=== PATIENT | female | born 1940 | race Caucasian/White ===

== ENCOUNTER → 2017-03-25 | Outpatient (CLI) | payer MEDICARE, BC ==
--- NOTE | 2017-03-25 15:07 | CARD ---
APPROVED REPORT EXAM: Two-dimensional and M-mode echocardiogram with Doppler and color Doppler. Other Information Quality : GoodHR: 59bpm INDICATION Dyspnea 2D DIMENSIONS RVDd3.2 (2.9-3.5cm)Left Atrium(2D)3.6 (1.6-4.0cm) IVSd0.9 (0.7-1.1cm)Aortic Root(2D)3.0 (2.0-3.7cm) LVDd4.8 (3.9-5.9cm)LVOT Diameter1.8 (1.8-2.4cm) PWd0.9 (0.7-1.1cm)LVDs3.5 (2.5-4.0cm) FS (%) 28.8 %SV60.7 ml LVEF(%)55.3 (>50%) Aortic Valve AoV Peak Lionel.117.6cm/sAoV VTI28.9cm AO Peak GR.5.5mmHgLVOT Peak Lionel.96.4cm/s AO Mean GR.3mmHgAVA (VMAX)2.12cm2 AI P 1/2 [id number] Mitral Valve MV E Pyzkylmj96.7cm/sMV E Peak Gr.110mmHg MV DECEL [id number] A Lgnaumeq65.5cm/s E/A Ratio0.9 Pulmonary Valve PV Peak Xmunzxao38.3cm/sPV Peak Grad.4mmHg Tricuspid Valve TR P. Knigrotb008ip/sTR Peak Gr.23mmHg Pulmonary Vein S1 Ogzlydvb06.3cm/sD2 Gfvwmvfx83.4cm/s LEFT VENTRICLE The left ventricle is normal size. There is normal left ventricular wall thickness. The left ventricu lar systolic function is normal and the ejection fraction is within normal range. EF 50-55% There is normal LV segmental wall motion. The left ventricular diastolic function and filling is normal for ag e. RIGHT VENTRICLE The right ventricle is normal size. The right ventricular systolic function is normal. ATRIA The left atrium size is normal. The right atrium size is normal. The interatrial septum is intact wit h no evidence for an atrial septal defect or patent foramen ovale as noted on 2-D or Doppler imaging. AORTIC VALVE The aortic valve is mildly thickened but opens well. Doppler and Color Flow revealed mild aortic regu rgitation. There is no significant aortic valvular stenosis. There is no aortic valvular vegetation. MITRAL VALVE The mitral valve is normal in structure and function. There is no evidence of mitral valve prolapse. There is no mitral valve stenosis. Doppler and Color-flow revealed mild mitral regurgitation. TRICUSPID VALVE The tricuspid valve is normal in structure and function. Doppler and Color Flow revealed mild tricusp id regurgitation. There is no tricuspid valve prolapse or vegetation. There is no tricuspid valve julia nosis. PULMONIC VALVE Doppler and Color Flow revealed mild pulmonic valvular regurgitation. There is no pulmonic valvular s tenosis. GREAT VESSELS The aortic root is normal in size. The IVC is normal in size and collapses >50% with inspiration. PERICARDIAL EFFUSION There is no pleural effusion. There is no evidence of significant pericardial effusion. Critical Notification Critical Value: No <Conclusion> The left ventricular systolic function is normal and the ejection fraction is within normal range. EF 50-55% There is normal LV segmental wall motion. No significant valvular disease, pulmonary hypertension or diastolic dysfunction to account for dyspn ea.
== END | disposition home or self-care (01) ==
LOC: ECHO 10:46
PROVIDERS: ATTEND Specialist
DX: I35.1 Nonrheumatic aortic (valve) insufficiency (principal); I34.0 Nonrheumatic mitral (valve) insufficiency; I07.1 Rheumatic tricuspid insufficiency; I37.1 Nonrheumatic pulmonary valve insufficiency
CPT/HCPCS: 93306

== ENCOUNTER 2019-04-19 14:57 | Observation (INO) | payer MEDICARE, BC ==
[~2019-04-19] VITALS: Ht 165.1 cm; Wt 60.9 kg
--- NOTE | 2019-04-19 15:15 | EKG ---
[address] [address] Test Date: 2019-04-19 Test Time: 15:07:45 Pat Name: NAIMA HUFFMAN Department: Room: Gender: F [employer] Operator: : [id number] Requested By: DELORIS MUELLER Order Number: [id number] Reading MD: Measurements Intervals Advance Rate: 109 P: 68 IN: 160 QRS: -54 QRSD: 102 T: 63 QT: 354 QTc: 478 Interpretive Statements SINUS TACHYCARDIA ABNORMAL LEFT AXIS DEVIATION LEFT ANTERIOR FASCICULAR BLOCK QRS(T) CONTOUR ABNORMALITY CONSISTENT WITH ANTEROSEPTAL INFARCT AGE UNDETERMINED ABNORMAL ECG RI6.01 No previous ECG available for comparison
--- NOTE | 2019-04-19 15:20 | PHYS DOC ---
Adult General Chief Complaint Chief Complaint: HEAD INJURY/TRAUMA HPI HPI 78-year-old female presents via EMS after fall. The patient had hip surgery 6 weeks ago and is supposed to be using a cane or walker. She was walking in the [employer] parking lot with her cane instead of the walker and she lost her balance and fell. She struck the left side of her forehead on the ground. She was not knocked unconscious. She remembers the entire event. She is alert and oriented. Her GCS is 15. Her only complaint at this time is headache. 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 She has not followed up with hematology for further workup of why she got pulmonary emboli. She denies fever or chills. She was diagnosed with a urinary tract infection a few days ago and has not been able to start her antibiotic. Review of Systems Review of Systems Constitutional: Denies fever or chills [] Eyes: Denies change in visual acuity, redness, or eye pain [] HENT: Denies nasal congestion or sore throat [] Respiratory: Denies cough or shortness of breath [] Cardiovascular: No additional information not addressed in HPI [] GI: Denies abdominal pain, nausea, vomiting, bloody stools or diarrhea [] : Denies dysuria or hematuria [] Musculoskeletal: Denies back pain or joint pain [] Integument: Superficial hematoma above the left eye[] Neurologic: Headache. Denies focal weakness or sensory changes [] Endocrine: Denies polyuria or polydipsia [] All other systems were reviewed and found to be within normal limits, except as documented in this note. Allergies Allergies Allergies Coded Allergies Type Severity Reaction Last Updated Verified No Known Drug Allergies 04/19/19 No Physical Exam Physical Exam Constitutional: Well developed, well nourished, no acute distress, non-toxic appearance. [] HENT: Normocephalic, atraumatic, bilateral external ears normal, oropharynx moist, no oral exudates, nose normal. [] Eyes: PERRLA, EOMI, conjunctiva normal, no discharge. [] Neck: Normal range of motion, no tenderness, supple, no stridor. [] Cardiovascular:Heart rate regular rhythm, no murmur [] Lungs & Thorax: Bilateral breath sounds clear to auscultation [] Abdomen: Bowel sounds normal, soft, no tenderness, no masses, no pulsatile masses. [] Skin: 3 cm superficial hematoma above the left eye[] Back: No tenderness, no CVA tenderness. [] Extremities: No tenderness, no cyanosis, no clubbing, ROM intact, no edema. [] Neurologic: Alert and oriented X 3, normal motor function, normal sensory func tion, no focal deficits noted. [] Psychologic: Affect normal, judgement normal, mood normal. [] EKG EKG Sinus tachycardia, rate 109, leftward axis, no ST elevations or depressions.[] Radiology/Procedures Radiology/Procedures [] Impressions: Examination: CT HEAD WO CONTRAST History: Injury. Pain. On anticoagulation therapy. Comparison/Correlation: None Findings: Axial images of hydrocele without contrast. Atrophy is present. Mild chronic ischemic change of the white matter is present. No intracranial hemorrhage, midline shift, or mass effect. Left lateral forehead region soft tissue hematoma is present. Globes and optic nerves are unremarkable. Bony structures are intact. Impression: No intracranial hemorrhage. Left lateral forehead soft tissue hematoma. RS Compliance Statement: One or more of the following individualized dose reduction techniques were utilized for this examination: 1. Automated exposure control 2. Adjustment of the mA and/or kV according to patient size 3. Use of iterative reconstruction technique Electronically signed by: Zhang Tejeda MD (04/19/2019 3:50 PM) [facility] DICTATED AND SIGNED BY: ZHANG TEJEDA MD DATE: 04/19/19 0639 CC: DELORIS MUELLER DO; DON HANKS MD Course & Med Decision Making Course & Med Decision Making Pertinent Labs and Imaging studies reviewed. (See chart for details) The patient's EKG is only significant for tachycardia with a rate of 109. The patient is alert and fully aware at this time. Her workup is pending. Given her use of blood thinner, I have informed her that she will need to be observed in the hospital overnight even with a negative head CT. Further discussion with the patient reveals that she had urinary tract infection resistant to the treatment she was given. She is concerned she still has this infection. I will give her a gram of Rocephin IV. The patient's head CT is negative for acute hemorrhage. Her CBC is remarkable for hemoglobin of 9.6. No previous for comparison. CMP is pending machine issues in the lab. I will admit the patient to the hospital for further observation. I spoke with Dr. Thomas and he has accepted the patient for admission. [] Dragon Disclaimer Dragon Disclaimer This electronic medical record was generated, in whole or in part, using a voice recognition dictation system. Departure Departure: Impression: Primary Impression: Fall on same level from slipping Disposition: ADMITTED INPATIENT Admitting Physician: Fany Thomas Condition: STABLE Referrals: DON HANKS MD (PCP) Problem Qualifiers Primary Impression: Fall on same level from slipping Encounter type: initial encounter Qualified Codes: W01.0XXA - Fall on same level from slipping, tripping and stumbling without subsequent striking against object, initial encounter DELORIS MUELLER DO Apr 19, 2019 15:20
[2019-04-19 15:35] LABS: BASO % 1 % (0-3); EOS % 0 % (0-3); HEMATOCRIT 29.2 % (36.0-47.0); HEMOGLOBIN 9.6 g/dL (12.0-15.5); LYMPH # 1.7 x10^3/uL (1.0-4.8); LYMPH % 38 % (24-48); MEAN CORPUSCULAR HEMOGLOBIN 33 pg (25-35); MEAN CORPUSCULAR HGB CONC 33 g/dL (31-37); MEAN CORPUSCULAR VOLUME 100 fL (79-100); MONO # 0.4 x10^3/uL (0.0-1.1); MONO % 9 % (0-9); NEUT # 2.3 x10^3uL (1.8-7.7); NEUT % 52 % (31-73); PLATELET COUNT 256 x10^3/uL (140-400); RED BLOOD COUNT 2.93 x10^6/uL (3.50-5.40); RED CELL DISTRIBUTION WIDTH 13.7 % (11.5-14.5); WHITE BLOOD COUNT 4.5 x10^3/uL (4.0-11.0)
--- NOTE | 2019-04-19 15:52 | RAD ---
Examination: CT HEAD WO CONTRAST History: Injury. Pain. On anticoagulation therapy. Comparison/Correlation: None Findings: Axial images of hydrocele without contrast. Atrophy is present. Mild chronic ischemic change of the white matter is present. No intracranial hemorrhage, midline shift, or mass effect. Left lateral forehead region soft tissue hematoma is present. Globes and optic nerves are unremarkable. Bony structures are intact. Impression: No intracranial hemorrhage. Left lateral forehead soft tissue hematoma. PQRS Compliance Statement: One or more of the following individualized dose reduction techniques were utilized for this examination: 1. Automated exposure control 2. Adjustment of the mA and/or kV according to patient size 3. Use of iterative reconstruction technique Electronically signed by: Zhang Gonzales MD (04/19/2019 3:50 PM) [facility]
[2019-04-19] MEDS ORDERED: ACETAMINOPHEN 325 MG TABLET PO ONE (16:15)
[2019-04-19 16:25] LABS: CALCIUM 9.1 mg/dL (8.5-10.1); CREATININE 1.3 mg/dL (0.6-1.0); GFR 39.5; POTASSIUM 4.3 mmol/L (3.5-5.1)
[2019-04-19 16:29] LABS: ALBUMIN/GLOBULIN RATIO 0.8 (1.0-1.7); TOTAL BILIRUBIN 0.3 mg/dL (0.2-1.0); TOTAL PROTEIN 6.6 g/dL (6.4-8.2)
[2019-04-19] MEDS ORDERED: ONDANSETRON PF 4 MG/2 ML VIAL. IV PRN (16:30)
[2019-04-19] MEDS ORDERED: ACETAMINOPHEN 325 MG TABLET PO PRN (16:30)
[2019-04-19 17:16] LABS: BACTERIA,URINE 0 /HPF (0-FEW); BILIRUBIN,URINE NEG (NEG); CLARITY,URINE HAZY; COLOR,URINE AMBER; GLUCOSE,URINE NEG (NEG); HYALINE CASTS, URINE OCC /HPF; NITRITE,URINE NEG (NEG); SQUAMOUS EPITHELIAL CELL,UR OCC /LPF; UROBILINOGEN,URINE 0.2 mg/dL (0.2 mg/dL)
[2019-04-19 17:30] VITALS: BP 103/62
[2019-04-19] MEDS ORDERED: AMIT10TA PO (18:13)
[2019-04-19] MEDS ORDERED: VITA400T6 PO (18:13)
[2019-04-19] MEDS ORDERED: TIOT4MIS2 IN (18:13)
[2019-04-19] MEDS ORDERED: APIX5TAB3 PO (18:13)
[2019-04-19] MEDS ORDERED: OMEP40CA45 PO (18:13)
[2019-04-19] MEDS ORDERED: METO-239 PO (18:13)
[2019-04-19] MEDS ORDERED: DICL100G28 TOP (18:13)
[2019-04-19] MEDS ORDERED: CYAN500T17 PO (18:13)
[2019-04-19] MEDS ORDERED: MAGN400C PO (18:13)
[2019-04-19] MEDS ORDERED: VENL150C6 PO (18:13)
[2019-04-19] MEDS ORDERED: SIMV40TA18 PO (18:13)
[2019-04-19 19:45] VITALS: BP 114/56
[2019-04-19] MEDS: IPRATRPIUM/ALBUTEROL 0.5/2.5MG 3 ML NEBU. NEB SCH (20:00)
[2019-04-19] MEDS ORDERED: AMITRIPTYLINE HCL 10 MG TABLET PO SCH (21:00)
[2019-04-19] MEDS ORDERED: SIMVASTATIN 40 MG TABLET. PO SCH (21:00)
[2019-04-19] MEDS: METOPROLOL SUCC 24HR ER 25 MG TAB.ER.24H. PO SCH (21:06)
[2019-04-19 23:06] VITALS: BP 131/78
[2019-04-20] MEDS: IPRATRPIUM/ALBUTEROL 0.5/2.5MG 3 ML NEBU. NEB SCH ×2 (04:59→10:10)
[2019-04-20 05:47] VITALS: BP 139/72
[2019-04-20 06:51] LABS: HEMATOCRIT 29.1 % (36.0-47.0); HEMOGLOBIN 9.6 g/dL (12.0-15.5); RED BLOOD COUNT 2.94 x10^6/uL (3.50-5.40); RED CELL DISTRIBUTION WIDTH 14.1 % (11.5-14.5); WHITE BLOOD COUNT 4.8 x10^3/uL (4.0-11.0)
[2019-04-20 07:03] LABS: CALCIUM 8.4 mg/dL (8.5-10.1); CREATININE 0.9 mg/dL (0.6-1.0); GFR 60.4; POTASSIUM 4.4 mmol/L (3.5-5.1)
[2019-04-20] MEDS ORDERED: PANTOPRAZOLE 40 MG TABLET. PO SCH (07:30)
[2019-04-20] MEDS: METOPROLOL SUCC 24HR ER 25 MG TAB.ER.24H. PO SCH (08:20)
[2019-04-20] MEDS: VENLAFAXINE 50 MG TABLET. PO SCH ×2 (08:22→13:05)
[2019-04-20] MEDS ORDERED: VITAMIN E. 400 UNIT CAPSULE. PO SCH (09:00)
[2019-04-20] MEDS ORDERED: TIOTROPIUM BROMIDE IN SCH (09:00)
[2019-04-20] MEDS ORDERED: MAGNESIUM OXIDE 400 MG TABLET PO SCH (09:00)
[2019-04-20] MEDS ORDERED: CYANOCOBALAMIN (VITAMIN B-12) 1,000 MCG TABLET. PO SCH (09:00)
[2019-04-20 11:08] VITALS: BP 148/75
[2019-04-20 15:23] VITALS: BP 138/77
--- NOTE | 2019-04-20 16:01 | SSS ---
ADMIT DATE: 04/20/2019 HISTORY OF PRESENT ILLNESS: The patient is a 78-year-old female patient who presented to the Emergency Room after a fall. The patient had a hip surgery about 6 weeks ago and was supposed to be using a cane or walker. [facility] and stayed with the walker and she lost her balance and fell. She struck the left side of her forehead on the ground. She was not knocked unconscious. She remembers the entire event. She is alert and oriented. Her Guero coma scale on arrival was 15. Her only complaint at this time is headache. The patient is on Eliquis for bilateral pulmonary emboli diagnosed in 09/2018. She has not followed up with Hematology for further workup or why she got pulmonary emboli. She denies any fever or chills. She was diagnosed with urinary tract infection a few days ago and has not been able to start her on antibiotics. She was extensively evaluated in the Emergency Room. She has had lab work as well as CT scan of the head, which basically showed no intracranial hemorrhage. She has left lateral forehead soft tissue hematoma. She was admitted for observation. PAST MEDICAL HISTORY: Significant for hypertension, hyperlipidemia, chronic kidney disease, COPD, pulmonary emboli. PAST SURGICAL HISTORY: Significant for right total hip arthroplasty, bilateral cataract extraction, tonsillectomy, hysterectomy and back surgery. ALLERGIES: She has no known drug allergies. MEDICATIONS: She is currently on following medications: She is on Spiriva Respimat 2 puffs once a day, apixaban 5 mg twice a day, simvastatin 40 mg at bedtime, metoprolol succinate 25 mg twice a day, diclofenac sodium 1 gram applied topically twice a day, amitriptyline 10 mg at bedtime, venlafaxine 150 mg daily, magnesium oxide 400 mg once a day, omeprazole 40 mg once a day, cyanocobalamin 500 mcg once a day, vitamin E mixed 400 units once a day. FAMILY HISTORY: She has 3 brothers and 1 sister. One of his brothers has COPD. SOCIAL HISTORY: She is , lives alone. She has a son and a daughter. She never smoked, does not drink alcohol. 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 REVIEW OF SYSTEMS: As per history of present illness. PHYSICAL EXAMINATION: GENERAL: On arrival to the Emergency Room, she looked well and was clearly in no apparent respiratory distress. No pallor, jaundice, cyanosis or thyromegaly. No jugular venous distension. No lower limb edema. VITAL SIGNS: Her heart rate was 97, blood pressure 141/101, temperature 98.4, respiratory rate 20, and oxygen saturation was 98%. HEAD, EYES, EARS, NOSE AND THROAT: Showed normocephalic, status post left forehead hematoma. NECK: Supple. HEART: Showed normal first and second heart sounds. No gallop or murmur. CHEST: Clear to auscultation. No crepitation or rhonchi. ABDOMEN: Distended, soft, nontender. NEUROLOGIC: She was awake, alert, responding appropriately. All cranial nerves intact. EXTREMITIES: She moves extremities without difficulty. She ambulates with a walker. LABORATORY DATA: Her lab work on admission showed a white cell count of 4500, hemoglobin 9.6, hematocrit 29.2, MCV was 100, platelet count 256,000. Her prothrombin time, INR and aPTT were normal. Her chemistry showed a serum sodium 137, potassium 4.3, chloride 105, bicarbonate ____, anion gap of 9, BUN 18, creatinine 1.3, estimated GFR was 39 mL per minute. Her glucose was 103, calcium was 9.1. Total bilirubin, AST, ALT, alkaline phosphatase were normal. Total protein was 6.6, albumin 3. Her urinalysis showed the urine was hazy, tyler with a pH of 6, specific gravity of 1.020. The urine was negative for protein, glucose, ketones, blood, nitrite. There was trace of leukocyte esterase, 1-2 rbc's, 5-10 wbc's, and no bacteria. Her CT scan of the head without contrast showed that the patient has atrophies present, mild chronic ischemic changes of the white matter is present. No intracranial hemorrhage, midline shift, or mass effect. Left lateral forehead region soft tissue hematoma is present. Globes and optic nerves are unremarkable. Bony structures are intact. Given the fact that she is on apixaban, a decision was made to observe her overnight. ASSESSMENT AND PLAN: The patient remained alert, oriented, hemodynamically stable. Able to ambulate with a walker without any problem. A decision was made to discharge her home to continue on amitriptyline 10 mg at bedtime, apixaban 5 mg twice a day, cyanocobalamin 500 mcg once a day, diclofenac sodium 100 mcg applied topically twice a day, magnesium oxide 400 mg once a day, metoprolol succinate 25 mg twice a day, omeprazole 40 mg once a day, simvastatin 40 mg at bedtime, tiotropium bromide for Spiriva Respimat 2 puffs once a day, venlafaxine 150 mg once a day and vitamin E 400 units once a day. FINAL DISCHARGE DIAGNOSES: Fall without any intracranial hemorrhage. She has left forehead hematoma. Other medical problems include hypertension, hyperlipidemia, chronic kidney disease, chronic obstructive pulmonary disease, pulmonary emboli. YULISA TELLO MD DR: DIMITRIS/josie JOB#: [id number] / [id number]
== END 2019-04-20 16:12 | disposition home or self-care (01) ==
LOC: ER 14:57 → INTOOBSV 17:20 → 1 SOUTH 17:20
PROVIDERS: ADMIT Internal Medicine; ATTEND Internal Medicine
DX: S00.83XA Contusion of other part of head, initial encounter (principal); I10 Essential (primary) hypertension; I12.9 Hypertensive chronic kidney disease with stage 1 through stage 4 chronic kidney disease, or unspecified chronic kidney disease; N18.9 Chronic kidney disease, unspecified; J44.9 Chronic obstructive pulmonary disease, unspecified; E78.5 Hyperlipidemia, unspecified; Z86.711 Personal history of pulmonary embolism; Z98.41 Cataract extraction status, right eye; Z98.42 Cataract extraction status, left eye; Z90.710 Acquired absence of both cervix and uterus; Z96.641 Presence of right artificial hip joint; Z82.5 Family history of asthma and other chronic lower respiratory diseases; W01.0XXA Fall on same level from slipping, tripping and stumbling without subsequent striking against object, initial encounter; Y93.01 Activity, walking, marching and hiking; Y92.59 Other trade areas as the place of occurrence of the external cause; Y99.9 Unspecified external cause status
CPT/HCPCS: 36415; 70450; 80048; 80053; 81001; 84484; 85025; 85027; 85610; 85730; 87086; 93005; 94640; 96365; 97161; 97165; 99284; G0378; J0696; J7620; G0379

== ENCOUNTER 2019-04-24 12:55 | Inpatient (IN) | payer MEDICARE, BC ==
[~2019-04-24] VITALS: Ht 165.1 cm; Wt 60.4 kg
[~2019-04-24 12:55] MED LIST: AMIT10TA PO; APIX5TAB3 PO; CYAN500T17 PO; DICL100G28 TOP; MAGN400C PO; METO-239 PO; OMEP40CA45 PO; SIMV40TA18 PO; TIOT4MIS2 IN; VENL150C6 PO; VITA400T6 PO
[2019-04-24] MEDS ORDERED: IV NORMAL SALINE 1,000ML 1,000 ML IV ONE (13:45)
[2019-04-24] MEDS ORDERED: PANTOPRAZOLE IV 40 MG VIAL. IVP ONE (13:45)
--- NOTE | 2019-04-24 13:47 | PHYS DOC ---
Past History Past Medical History: COPD, Depression, High Cholesterol, Hypertension, Kidney Infection, Other Additional Past Medical Histor: PE Past Surgical History: Hip Replacement, Hysterectomy, Other Additional Past Surgical Histo: BACK, KIDNEY STONE Alcohol Use: None Drug Use: None Adult General Chief Complaint Chief Complaint: RECTAL BLEED HPI HPI 38-year-old female presents with rectal bleeding. The patient was recently admitted to this facility for a fall on her glucose. She was admitted for observation at that time. The patient was also found to have a urinary tract infection and was placed on Ceftin air. She has now had bright red rectal bleeding for 2 days. The patient does not have lightheadedness or dizziness. She did not take her dose of Eliquis this morning because of the bleeding. She is on Eliquis because she has had pulmonary embolus about a year ago. The patient had a hip replacement in February and was placed on this medication as a preventative for blood clots. Patient does not have any abdominal pain. She has no other complaint at this time. Review of Systems Review of Systems Constitutional: Denies fever or chills [] Eyes: Denies change in visual acuity, redness, or eye pain [] HENT: Denies nasal congestion or sore throat [] Respiratory: Denies cough or shortness of breath [] Cardiovascular: No additional information not addressed in HPI [] GI: Denies abdominal pain, nausea, vomiting, bloody stools or diarrhea [] : Rectal bleeding[] Musculoskeletal: Denies back pain or joint pain [] Integument: Denies rash or skin lesions [] Neurologic: Denies headache, focal weakness or sensory changes [] Endocrine: Denies polyuria or polydipsia [] All other systems were reviewed and found to be within normal limits, except as documented in this note. Current Medications Current Medications Current Medications Medications (Trade) Dose Ordered Sig/Cole Start Time Stop Time Status Last Admin Dose Admin Pantoprazole Sodium (Protonix Vial) 40 mg 1X ONCE 04/24/19 13:45 04/24/19 13:46 Sodium Chloride 1,000 ml @ 1,000 mls/hr 1X ONCE 04/24/19 13:45 04/24/19 14:44 Allergies Allergies Allergies Coded Allergies Type Severity Reaction Last Updated Verified No Known Drug Allergies 04/19/19 No Physical Exam Physical Exam Constitutional: Well developed, well nourished, no acute distress, non-toxic appearance. [] HENT: Normocephalic, atraumatic, bilateral external ears normal, oropharynx moist, no oral exudates, nose normal. [] Eyes: PERRLA, EOMI, conjunctiva normal, no discharge. [] Neck: Normal range of motion, no tenderness, supple, no stridor. [] Cardiovascular:Heart rate regular rhythm, no murmur [] Lungs & Thorax: Bilateral breath sounds clear to auscultation [] Abdomen: Bowel sounds normal, soft, no tenderness, no masses, no pulsatile masses. [] Skin: Healing ecchymosis over the left forehead and left periorbital area.[] Back: No tenderness, no CVA tenderness. [] Extremities: No tenderness, no cyanosis, no clubbing, ROM intact, no edema. [] Neurologic: Alert and oriented X 3, normal motor function, normal sensory function, no focal deficits noted. [] Psychologic: Affect normal, judgement normal, mood normal. [] EKG EKG [] Radiology/Procedures Radiology/Procedures [] Course & Med Decision Making Course & Med Decision Making Pertinent Labs and Imaging studies reviewed. (See chart for details) The patient's labs are unremarkable. Her hemoglobin has improved since her last visit to 10.5. Her Hemoccult was positive for blood. I will admit the patient for further observation. I spoke with Dr. Thomas and he has accepted the patient for admission. [] Dragon Disclaimer Dragon Disclaimer This electronic medical record was generated, in whole or in part, using a voice recognition dictation system. Departure Departure: Impression: Primary Impression: Rectal bleed Disposition: ADMITTED INPATIENT Admitting Physician: Fany Thomas Condition: STABLE Referrals: GIBSON LANDA MD (PCP) DELORIS MUELLER DO Apr 24, 2019 13:47
[2019-04-24 14:54] LABS: BASO % 1 % (0-3); EOS % 1 % (0-3); HEMATOCRIT 31.5 % (36.0-47.0); HEMOGLOBIN 10.5 g/dL (12.0-15.5); LYMPH # 2.6 x10^3/uL (1.0-4.8); LYMPH % 48 % (24-48); MEAN CORPUSCULAR HEMOGLOBIN 32 pg (25-35); MEAN CORPUSCULAR HGB CONC 33 g/dL (31-37); MEAN CORPUSCULAR VOLUME 97 fL (79-100); MONO # 0.5 x10^3/uL (0.0-1.1); MONO % 9 % (0-9); NEUT # 2.3 x10^3uL (1.8-7.7); NEUT % 42 % (31-73); PLATELET COUNT 371 x10^3/uL (140-400); RED BLOOD COUNT 3.26 x10^6/uL (3.50-5.40); RED CELL DISTRIBUTION WIDTH 13.7 % (11.5-14.5); WHITE BLOOD COUNT 5.3 x10^3/uL (4.0-11.0)
[2019-04-24 14:58] LABS: CALCIUM 9.6 mg/dL (8.5-10.1); CREATININE 1.3 mg/dL (0.6-1.0); GFR 39.5; POTASSIUM 4.3 mmol/L (3.5-5.1)
[2019-04-24 15:05] LABS: FECAL OB PT POSITIVE (NEG)
[2019-04-24 15:11] LABS: ALBUMIN 3.4 g/dL (3.4-5.0); ALBUMIN/GLOBULIN RATIO 0.9 (1.0-1.7); TOTAL BILIRUBIN 0.3 mg/dL (0.2-1.0); TOTAL PROTEIN 7.1 g/dL (6.4-8.2)
[2019-04-24] MEDS ORDERED: ONDANSETRON PF 4 MG/2 ML VIAL. IV PRN (18:15)
[2019-04-24 18:18] LABS: BACTERIA,URINE 0 /HPF (0-FEW); BILIRUBIN,URINE NEG (NEG); CLARITY,URINE CLEAR; COLOR,URINE YELLOW; GLUCOSE,URINE NEG (NEG); NITRITE,URINE NEG (NEG); RBC,URINE OCC /HPF (0-2); SQUAMOUS EPITHELIAL CELL,UR OCC /LPF; UROBILINOGEN,URINE 0.2 mg/dL (0.2 mg/dL); WBC,URINE 0 /HPF (0-4)
[2019-04-24 18:34] VITALS: BP 151/65
[2019-04-24] MEDS ORDERED: CALC250T PO (18:52)
[2019-04-24] MEDS ORDERED: CHOL100099 PO (18:52)
[2019-04-24] MEDS ORDERED: MULT-665 PO (18:52)
[2019-04-24] MEDS ORDERED: ACET500T68 PO (18:52)
[2019-04-24] MEDS ORDERED: MELA3TAB56 PO (18:52)
[2019-04-24] MEDS ORDERED: CALC3.7S5 NS (18:52)
[2019-04-24] MEDS ORDERED: DOCU100C28 PO (18:52)
--- NOTE | 2019-04-24 19:00 | NUR ---
Patient admitted just prior to shift change from ED. Dx Rectal Bleed. A/O x 4. VSS. HGB stable. Orientated to room and call light. Reviewed POC to include lab draws heather Hgb and call for assist while out of bed. Patient verbalized understanding. Resting in bed. Call light at hand.
[2019-04-24] MEDS ORDERED: ACETAMINOPHEN 500 MG TABLET PO PRN (20:15)
[2019-04-24 20:28] LABS: HEMATOCRIT 28.1 % (36.0-47.0); HEMOGLOBIN 9.5 g/dL (12.0-15.5); RED BLOOD COUNT 2.89 x10^6/uL (3.50-5.40); RED CELL DISTRIBUTION WIDTH 13.6 % (11.5-14.5); WHITE BLOOD COUNT 4.5 x10^3/uL (4.0-11.0)
[2019-04-24 20:47] VITALS: BP 126/76
[2019-04-24] MEDS ORDERED: MELATONIN 3 MG TABLET PO SCH (21:00)
[2019-04-24] MEDS ORDERED: AMITRIPTYLINE HCL 10 MG TABLET PO SCH (21:00)
[2019-04-24] MEDS ORDERED: SIMVASTATIN 40 MG TABLET. PO SCH (21:00)
[2019-04-24] MEDS: METOPROLOL SUCC 24HR ER 25 MG TAB.ER.24H. PO SCH (21:21)
[2019-04-24] MEDS: VENLAFAXINE 50 MG TABLET. PO SCH (21:31)
[2019-04-24 23:45] VITALS: BP 115/72
[2019-04-25 05:54] VITALS: BP 127/73
[2019-04-25 07:13] LABS: BASO % 1 % (0-3); EOS # 0.1 x10^3/uL (0.0-0.7); EOS % 1 % (0-3); HEMATOCRIT 30.7 % (36.0-47.0); HEMOGLOBIN 10.1 g/dL (12.0-15.5); LYMPH # 1.9 x10^3/uL (1.0-4.8); LYMPH % 47 % (24-48); MEAN CORPUSCULAR HEMOGLOBIN 32 pg (25-35); MEAN CORPUSCULAR HGB CONC 33 g/dL (31-37); MEAN CORPUSCULAR VOLUME 98 fL (79-100); MONO # 0.4 x10^3/uL (0.0-1.1); MONO % 10 % (0-9); NEUT # 1.6 x10^3uL (1.8-7.7); NEUT % 41 % (31-73); PLATELET COUNT 309 x10^3/uL (140-400); RED BLOOD COUNT 3.14 x10^6/uL (3.50-5.40); RED CELL DISTRIBUTION WIDTH 13.8 % (11.5-14.5)
[2019-04-25] MEDS ORDERED: IPRATRPIUM/ALBUTEROL 0.5/2.5MG 3 ML NEBU. NEB SCH (08:00)
[2019-04-25] MEDS: METOPROLOL SUCC 24HR ER 25 MG TAB.ER.24H. PO SCH (08:19)
[2019-04-25] MEDS ORDERED: CHOLECALCIFEROL (VITAMIN D3) 1,000 UNIT TABLET PO SCH (09:00)
[2019-04-25] MEDS ORDERED: CYANOCOBALAMIN (VITAMIN B-12) 250 MCG TABLET PO SCH (09:00)
[2019-04-25] MEDS ORDERED: TIOTROPIUM BROMIDE IN SCH (09:00)
[2019-04-25] MEDS ORDERED: CALCIUM CARBONATE 500 MG TABLET PO SCH (09:00)
[2019-04-25] MEDS ORDERED: DOCUSATE SODIUM 100 MG CAPSULE PO SCH (09:00)
[2019-04-25] MEDS ORDERED: MULTIVITAMIN with MINERAL TABLET. PO SCH (09:00)
[2019-04-25] MEDS: VENLAFAXINE 50 MG TABLET. PO SCH (09:34)
[2019-04-25 10:29] VITALS: BP 105/72
--- NOTE | 2019-04-25 12:02 | SSS ---
ADMIT DATE: 04/25/2019 HISTORY OF PRESENT ILLNESS: The patient is 78-year-old female patient who came to the Emergency Room with complaint of rectal bleeding. The patient was recently admitted to this facility for a fall. She was admitted for observation at that time. The patient was also found to have urinary tract infection and was placed on cefdinir. She has now had bright red blood per rectum for 2 days. The patient does not have lightheadedness or dizziness. Did not take her dose of Eliquis this morning because of bleeding. She is on Eliquis because she had pulmonary emboli about a year ago. The patient had a hip replacement in February and was placed on this medication and actually prior to hip fracture in fact the pulmonary emboli was diagnosed about 6 months ago and her fracture was about 3 months ago. She was evaluated in the Emergency Room and her hemoglobin and hematocrit remained stable at 10.5 and 31.5. Her hemoglobin on 04/19/2019 and 04/20/2019 were actually slightly lower at 9.6 and 29.2 and 9.6 and 29.1. The patient was admitted for observation. I explained to the patient that given that she has had her pulmonary emboli unprovoked she probably needs to be investigated further, particularly having a colonoscopy and upper GI endoscopy as she might have colon cancer as an exposing factor for pulmonary emboli. I offered to transfer her to [facility] to arrange for an IVC filter and also to consult the regional program manager to do both upper and lower GI endoscopy, but she declined and she wanted to discuss with her daughter and her son and basically opted to go home and to speak with her primary care physician tomorrow. She remained hemodynamically stable throughout her stay here. She has no further episodes of rectal bleeding, had no hematemesis. No hematuria, hemoptysis, hematochezia. PAST MEDICAL HISTORY: Significant for hypertension, hyperlipidemia, chronic kidney disease, COPD and pulmonary emboli. PAST SURGICAL HISTORY: Significant for right total hip arthroplasty, bilateral cataract extraction, tonsillectomy, hysterectomy and back surgery. ALLERGIES: She has no known drug allergies. FAMILY HISTORY: She has 3 brothers and 1 sister. One of her brother has COPD. SOCIAL HISTORY: She is , lives alone. She has a son and a daughter. She never smoked, does not drink alcohol. 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 MEDICATIONS: She is currently on following medications: She is on tiotropium bromide 2 puffs daily, apixaban 5 mg twice a day, simvastatin 40 mg at bedtime, metoprolol succinate 25 mg p.o. b.i.d., diclofenac sodium 100 gram gel cream applied 1 gram topically twice a day as needed, acetaminophen 500 mg every 6 hours, amitriptyline 30 mg at bedtime, venlafaxine 150 mg daily, calcium citrate 950 mg daily, docusate sodium 100 mg twice a day, omeprazole 40 mg once a day, calcitonin salmon synthetic nasal spray one spray to each nostril, cyanocobalamin 500 mcg once a day, cholecalciferol 5000 units p.o. daily. She is on multivitamin with mineral 1 tablet once a day, melatonin 3 mg at bedtime. PHYSICAL EXAMINATION: GENERAL: On arrival to the Emergency Room, she looked well and was clearly in no apparent respiratory distress, pale, but no jaundice, cyanosis or thyromegaly. No jugular venous distention. No limb edema. VITAL SIGNS: Her heart rate was 88, blood pressure 151/65, temperature 98.3, respiratory rate was 18, and oxygen saturation was 92%. HEAD, EYES, EARS, NOSE AND THROAT: Showed normocephalic, atraumatic. NECK: Supple. CARDIAC: Normal first and second heart sounds with no gallop, rub or murmur. CHEST: Clear to auscultation. No crepitation or rhonchi. ABDOMEN: Scaphoid, soft, nontender. NEUROLOGIC: She is awake, alert, responding appropriately. All cranial nerves intact. EXTREMITIES: She moves extremities without difficulty. She ambulates with a walker. LABORATORY DATA: On admission showed a white cell count of 5300, hemoglobin 10, hematocrit 31, MCV 97 and platelet count of 371,000. Her chemistry showed a serum sodium 141, potassium 4.3, chloride 104, bicarbonate 25, anion gap of 12, BUN 18, creatinine 1.3, estimated GFR was 39 mL. Glucose was 88, calcium was 9.6. Total bilirubin, AST, ALT, alkaline phosphatase were normal. Total protein 7.1, albumin was 3.4. Urinalysis was unremarkable. The patient was kept overnight and she remained hemodynamically stable. Her white cell count this morning was 4000, hemoglobin 10, hematocrit 30, MCV 98 and platelet count 309,000. She remained hemodynamically stable and when I saw her this afternoon, she was sitting comfortably in her chair, in no apparent respiratory distress, pale, but no jaundice, cyanosis or thyromegaly. No jugular venous distention. No lower limb edema, heart rate was 76, blood pressure was 105/72, temperature 98.2, respiratory rate 20, and oxygen saturation was 93% on room air. The rest of clinical examination is stable. ASSESSMENT AND PLAN: The patient was discharged home to continue on all her medications. I made it very clear to her that she can resume her Eliquis, but she if bleeds, she needs to come to the nearest Emergency Room [facility] and she might have to consider IVC filter. Also she needs to be investigated further as her pulmonary emboli were unprovoked and now that she is bleeding she might have colon cancer or other source of bleeding. YULISA TELLO MD DR: DIMITRIS/josie JOB#: [id number] / [id number]
--- NOTE | 2019-04-25 13:09 | NUR ---
Discharge Note: NAIMA HUFFMAN [address] Discharge instructions and discharge home medications reviewed with Patient and a copy given. All questions have been answered and understanding verbalized. The following instructions and handouts were given: education about upper and lower endoscopy, GI bleeding, IVC filter, discharge instructions Discontinued lines and drains: Peripheral IV intact. Patient discharged to Home or Self Care with Friend via Wheelchair
[2019-04-26] MEDS ORDERED: PANTOPRAZOLE 40 MG TABLET. PO SCH (07:30)
== END 2019-04-25 13:05 | disposition home or self-care (01) | DRG 378 ==
LOC: ER 12:55 → 1 SOUTH 17:20
PROVIDERS: ADMIT Internal Medicine; ATTEND Internal Medicine
DX: K62.5 Hemorrhage of anus and rectum (principal); N39.0 Urinary tract infection, site not specified; E78.00 Pure hypercholesterolemia, unspecified; E78.5 Hyperlipidemia, unspecified; I12.9 Hypertensive chronic kidney disease with stage 1 through stage 4 chronic kidney disease, or unspecified chronic kidney disease; J44.9 Chronic obstructive pulmonary disease, unspecified; N18.9 Chronic kidney disease, unspecified; Z79.01 Long term (current) use of anticoagulants; Z82.5 Family history of asthma and other chronic lower respiratory diseases; Z86.711 Personal history of pulmonary embolism; Z87.442 Personal history of urinary calculi; Z90.710 Acquired absence of both cervix and uterus; Z96.641 Presence of right artificial hip joint; Z98.41 Cataract extraction status, right eye; Z98.42 Cataract extraction status, left eye; F32.9 Major depressive disorder, single episode, unspecified
CPT/HCPCS: 36415; 80053; 81001; 82274; 85025; 85027; 94640; J7620; 97110; J7030

== ENCOUNTER → 2019-05-18 | Day surgery (SDC) | payer MEDICARE, BC ==
[~2019-05-18] MED LIST changes: +ACET500T68 PO; +ACETAMINOPHEN 325 MG TABLET PO PRN; +ALBUTEROL SULFATE 2.5 MG/3 ML NEBU. NEB PRN; +CALC250T PO; +CALC3.7S5 NS; +CHOL100099 PO; +DENO60DI SQ; +DOCU100C28 PO; +IV RINGERS SOLUTION,LACTATED 1,000 ML IV SCH; +MELA3TAB56 PO; +MIDAZOLAM HCL PF 2 MG/2 ML VIAL. IV PRN; +MULT-665 PO; +ONDANSETRON PF 4 MG/2 ML VIAL. IV PRN; +PHENOL ORAL SPRAY 177ML BOTTLE. MM PRN; +PROPOFOL 40 ML IV ONE; +diphenhydrAMINE 50 MG/ML VIAL IV PRN
[2019-05-18 09:35] VITALS: BP 138/86
--- NOTE | 2019-05-19 18:37 | PATHOLOGY ---
[facility] Accession Number: [id number] . 01 Material submitted: . PART A: small bowel - SMALL BOWEL BX PART B: stomach - GASTRIC BX . 01 Clinical history: . Lower GI bleed, anemia. . 02 Diagnosis: A. Small bowel biopsy: - No significant pathologic abnormalities. . B. Gastric biopsy: - Mild superficial chronic gastritis. . ([facility]:mm; 05/19/2019) [facility] 05/19/2019 1246 Local . 02 Comment: Sections of the small bowel biopsy reveal segments of duodenal and small intestine mucosa. Where best oriented, the mucosal villi show no sprue-like changes or significant inflammatory changes. . Sections of the gastric biopsy reveal a segment of gastric body mucosa showing superficial congestion and mild chronic inflammation. A properly-controlled immunoperoxidase stain for Helicobacter is negative for Helicobacter organisms. . Special stain (B1): Immunoperoxidase stain for Helicobacter . ([facility]:mml; 05/19/2019) . 02 Electronically signed: . Ted Jack MD, Pathologist NPI- [id number] . 01 Gross description: . A. Received in formalin labeled "Clarissa, Vickie, small bowel BX" is a 0.5 x 0.5 x 0.1 cm aggregate of valera-brown soft tissue fragments. The specimen is submitted entirely in A1. . B. Received in formalin labeled "Clarissa, Vickie, gastric BX" is a 0.5 x 0.5 x 0.1 cm fragment of valera-brown soft tissue. The specimen is submitted entirely in B1. ([facility]; 05/18/2019) [facility] 05/18/2019 1800 Local . 02 Pathologist provided ICD-10: K29.50 . 02 CPT . 460734, 343940, [id number] Specimen Comment: A courtesy copy of this report has been sent to [phone], [phone] Specimen Comment: [id number] Specimen Comment: Report sent to / DR LANDA Performed at: [address] [facility] [address] [facility] [address], [place] [id number] MD Donte Childs MD Phone: [phone] Performed at: [address] [facility] [address] [place], [place] [id number] MD Ted Jack MD Phone: [phone]
== END | disposition home or self-care (01) ==
LOC: SURG 08:07
PROVIDERS: ATTEND Emergency Medicine
DX: K92.1 Melena (principal); K29.50 Unspecified chronic gastritis without bleeding; K64.8 Other hemorrhoids; K44.9 Diaphragmatic hernia without obstruction or gangrene; K21.9 Gastro-esophageal reflux disease without esophagitis; G89.29 Other chronic pain; E78.5 Hyperlipidemia, unspecified; D50.9 Iron deficiency anemia, unspecified; J44.9 Chronic obstructive pulmonary disease, unspecified; Z86.711 Personal history of pulmonary embolism
CPT/HCPCS: 43239; 45378; 88305; 88342; J2704; J7120

== ENCOUNTER 2020-08-11 16:04 | Emergency (ER) | payer MEDICARE, BC ==
[~2020-08-11] VITALS: Ht 165.1 cm; Wt 65.0 kg
[~2020-08-11 16:04] MED LIST changes: -ACETAMINOPHEN 325 MG TABLET PO PRN; -ALBUTEROL SULFATE 2.5 MG/3 ML NEBU. NEB PRN; -IV RINGERS SOLUTION,LACTATED 1,000 ML IV SCH; +MELA3TAB4 PO; -MELA3TAB56 PO; -MIDAZOLAM HCL PF 2 MG/2 ML VIAL. IV PRN; -ONDANSETRON PF 4 MG/2 ML VIAL. IV PRN; -PHENOL ORAL SPRAY 177ML BOTTLE. MM PRN; -PROPOFOL 40 ML IV ONE; -diphenhydrAMINE 50 MG/ML VIAL IV PRN
--- NOTE | 2020-08-11 16:21 | PHYS DOC ---
Past History Past Medical History: High Cholesterol, Hypertension, Other Additional Past Medical Histor: PE, OSTEOARTH Past Surgical History: Hysterectomy Additional Past Surgical Histo: BACK, KIDNEY STONE Alcohol Use: None Drug Use: None General Adult HPI: HPI: Patient is a 79-year-old female sent in by her primary care physician for concern for pneumothorax. Patient has had increasing dyspnea on exertion for the past 2 weeks. Has desatted to 80% with walking 4 minutes. Patient primary care provider stated that she has decreased lung sounds on the left. Patient states over the past 30 days she has been having worsening symptoms. Patient states that after walking she is having a hard time recovering. Catching her breath. Patient that she is normally fairly active and ambulates with and cares for herself. Patient denies any cough. Patient history of multiple pulmonary embolism embolisms and is been on Eliquis and is continue to take it. Had a fall a couple of days ago where she lost her footing and has some bruising on her legs, states she did not hit her head. Is she has a history of COPD, has never used tobacco but has been exposed to secondhand. States she had a negative cardiac work-up a couple of years ago. Patient states she does not have any fevers, cough denies any vomiting, diarrhea or changes in urination. Review of Systems: Review of Systems: All other systems within normal limits except for as noted in the HPI Allergies: Allergies: Allergies Coded Allergies Type Severity Reaction Last Updated Verified No Known Drug Allergies 05/18/19 No Physical Exam: PE: Constitutional: Well developed, well nourished, no acute distress, non-toxic appearance. [] HENT: Normocephalic, atraumatic, bilateral external ears normal, nose normal. [] Eyes: PERRLA, conjunctiva normal, no discharge. [] Neck: No rigidity, supple, no stridor. [] Cardiovascular: Regular rate and rhythm, brisk cap refill [] Lungs & Thorax: Non labored symmetric respirations, no tachypnea or respiratory distress. Bilateral breath sounds diminished [] Abdomen: Soft, nondistended. Skin: Warm, dry, no erythema, no rash. [] Back: Unremarkable Extremities: No deformities, range of motion grossly intact, no lower extremity edema [] Neurologic: Alert and oriented X 3, no focal deficits noted. [] Psychologic: Affect normal, judgement normal, mood normal. [] EKG: EKG: Sinus rhythm with left axis deviation, left anterior fascicular block, heart rate 69 bpm, no ST elevation or depression [] Radiology/Procedures: Radiology/Procedures: EXAM: CHEST 1 VIEW History: Shortness of breath COMPARISON: None available. TECHNIQUE: Single portable radiograph of the chest FINDINGS: The cardiac silhouette is unremarkable. The lungs are clear bilaterally. The costophrenic sulci are clear and well demarcated. Moderate compression in the thoracic vertebral body. IMPRESSION: No radiographic evidence of an acute cardiopulmonary process. [] Heart Score: C/O Chest Pain: No Risk Factors: Risk Factors: DM, Current or recent (<one month) smoker, HTN, HLP, family history of CAD, obesity. Risk Scores: Score 0 - 3: 2.5% MACE over next 6 weeks - Discharge Home Score 4 - 6: 20.3% MACE over next 6 weeks - Admit for Clinical Observation Score 7 - 10: 72.7% MACE over next 6 weeks - Early Invasive Strategies Course & Med Decision Making: Course & Med Decision Making Pertinent Labs and Imaging studies reviewed. (See chart for details) Work-up unremarkable but patient desats to 87% on room air when walking back from the bathroom. Recommended admission for oxygen and duo nebs. Patient is refusing observation admission. Contacted her primary care provider who will follow her up in the clinic to see about oxygen and nebulizer at home. Considered PE but patient is not tachycardic and is not tachycardic with exertion and is already anticoagulated and states she is compliant with Eliquis. [] Shira Disclaimer: Shira Disclaimer: This electronic medical record was generated, in whole or in part, using a voice recognition dictation system. Departure Departure: Impression: Primary Impression: Exercise hypoxemia Disposition: HOME / SELF CARE / HOMELESS Condition: STABLE Referrals: GIBSON LANDA MD (PCP) Patient Instructions: Shortness of Breath Scripts Prednisone (PREDNISONE) 50 Mg Tablet 1 TAB PO DAILY for steroid for 4 Days, #4 TAB You received this medication in the emergency room today. You will starting your next dose tomorrow. Prov: VIK BARAKAT MD 08/11/20 VIK BARAKAT MD Aug 11, 2020 16:21
--- NOTE | 2020-08-11 16:35 | RAD ---
EXAM: CHEST 1 VIEW History: Shortness of breath COMPARISON: None available. TECHNIQUE: Single portable radiograph of the chest FINDINGS: The cardiac silhouette is unremarkable. The lungs are clear bilaterally. The costophrenic sulci are clear and well demarcated. Moderate compression in the thoracic vertebral body. IMPRESSION: No radiographic evidence of an acute cardiopulmonary process. Electronically signed by: Sudhir Kwong MD (08/11/2020 4:33 PM) [id number]
[2020-08-11 17:20] LABS: BASO % 1 % (0-3); EOS % 0 % (0-3); HEMATOCRIT 31.3 % (36.0-47.0); HEMOGLOBIN 10.6 g/dL (12.0-15.5); LYMPH # 2.4 x10^3/uL (1.0-4.8); LYMPH % 40 % (24-48); MEAN CORPUSCULAR HEMOGLOBIN 35 pg (25-35); MEAN CORPUSCULAR HGB CONC 34 g/dL (31-37); MEAN CORPUSCULAR VOLUME 102 fL (79-100); MONO # 0.4 x10^3/uL (0.0-1.1); MONO % 8 % (0-9); NEUT % 51 % (31-73); PLATELET COUNT 190 x10^3/uL (140-400); RED BLOOD COUNT 3.07 x10^6/uL (3.50-5.40); RED CELL DISTRIBUTION WIDTH 14.2 % (11.5-14.5); WHITE BLOOD COUNT 5.9 x10^3/uL (4.0-11.0)
[2020-08-11 17:30] LABS: CALCIUM 9.2 mg/dL (8.5-10.1); CREATININE 1.6 mg/dL (0.6-1.0); POTASSIUM 4.5 mmol/L (3.5-5.1)
--- NOTE | 2020-08-11 17:40 | EKG ---
[address] [address] Test Date: 2020-08-11 Test Time: 17:16:36 Pat Name: NAIMA HUFFMAN Department: Room: Gender: F [place] Lacer: : 1940 Requested By: VIK BARAKAT Order Number: [id number] Reading MD: Measurements Intervals [place] Rate: 69 P: 54 [place]: 202 QRS: -52 QRSD: 98 T: 28 QT: 424 QTc: 456 Interpretive Statements SINUS RHYTHM ABNORMAL LEFT AXIS DEVIATION LEFT ANTERIOR FASCICULAR BLOCK QRS(T) CONTOUR ABNORMALITY CONSISTENT WITH ANTEROSEPTAL INFARCT PROBABLY OLD ABNORMAL ECG RI6.02 No previous ECG available for comparison
[2020-08-11 17:43] LABS: ALBUMIN 3.6 g/dL (3.4-5.0); ALBUMIN/GLOBULIN RATIO 1.3 (1.0-1.7); TOTAL BILIRUBIN 0.4 mg/dL (0.2-1.0); TOTAL PROTEIN 6.3 g/dL (6.4-8.2)
[2020-08-11] MEDS ORDERED: IPRATRPIUM/ALBUTEROL 0.5/2.5MG 3 ML NEBU. NEB ONE (18:00)
[2020-08-11] MEDS ORDERED: PRED50TA PO (18:05)
[2020-08-11 18:15] VITALS: BP 148/82
[2020-08-11] MEDS ORDERED: predniSONE 20 MG TABLET PO ONE (18:15)
[2020-08-11 18:56] LABS: BILIRUBIN,URINE NEG (NEG); CLARITY,URINE CLOUDY; COLOR,URINE AMBER; GLUCOSE,URINE NEG (NEG); NITRITE,URINE NEG (NEG); UROBILINOGEN,URINE 0.2 mg/dL (0.2 mg/dL)
[2020-08-11 18:58] LABS: BACTERIA,URINE MOD /HPF (0-FEW); HYALINE CASTS, URINE FEW /HPF; RBC,URINE RARE /HPF (0-2); SQUAMOUS EPITHELIAL CELL,UR FEW /LPF; WBC,URINE 20-40 /HPF (0-4)
== END 2020-08-11 18:55 | disposition home or self-care (01) ==
LOC: ER 16:04
DX: R09.02 Hypoxemia (principal); E78.00 Pure hypercholesterolemia, unspecified; I10 Essential (primary) hypertension; Z86.711 Personal history of pulmonary embolism; Z79.01 Long term (current) use of anticoagulants
CPT/HCPCS: 36415; 71046; 80053; 81001; 82803; 83605; 83735; 83880; 84443; 84484; 85025; 87086; 93005; 94640; 99285; J7512

== ENCOUNTER 2020-09-18 11:05 | Emergency (ER) | payer MEDICARE, BC ==
[~2020-09-18] VITALS: Ht 165.1 cm; Wt 62.0 kg
[~2020-09-18 11:05] MED LIST changes: -OMEP40CA45 PO; +OMEP40CA7 PO; +PRED50TA PO
--- NOTE | 2020-09-18 11:32 | EKG ---
[address] [address] Test Date: 2020-09-18 Test Time: 11:23:33 Pat Name: NAIMA HUFFMAN Department: Room: Gender: F [place] Worker: ABDIFATAH : 1940 Requested By: DELORIS MUELLER Order Number: [id number] Reading MD: Measurements Intervals [place] Rate: 76 P: 0 OR: 166 QRS: -54 QRSD: 92 T: 1 QT: 400 QTc: 455 Interpretive Statements SINUS RHYTHM ABNORMAL LEFT AXIS DEVIATION LEFT ANTERIOR FASCICULAR BLOCK QRS(T) CONTOUR ABNORMALITY CONSISTENT WITH ANTERIOR INFARCT AGE UNDETERMINED ABNORMAL ECG RI6.02 No previous ECG available for comparison
[2020-09-18 11:34] LABS: BASO % 1 % (0-3); EOS % 1 % (0-3); HEMATOCRIT 33.1 % (36.0-47.0); HEMOGLOBIN 11.3 g/dL (12.0-15.5); LYMPH # 2.4 x10^3/uL (1.0-4.8); LYMPH % 46 % (24-48); MEAN CORPUSCULAR HEMOGLOBIN 35 pg (25-35); MEAN CORPUSCULAR HGB CONC 34 g/dL (31-37); MEAN CORPUSCULAR VOLUME 103 fL (79-100); MONO # 0.4 x10^3/uL (0.0-1.1); MONO % 8 % (0-9); NEUT # 2.3 x10^3uL (1.8-7.7); NEUT % 45 % (31-73); PLATELET COUNT 176 x10^3/uL (140-400); RED BLOOD COUNT 3.21 x10^6/uL (3.50-5.40); RED CELL DISTRIBUTION WIDTH 13.8 % (11.5-14.5); WHITE BLOOD COUNT 5.2 x10^3/uL (4.0-11.0)
--- NOTE | 2020-09-18 12:00 | RAD ---
EXAM: CHEST ONE VIEW. HISTORY: Shortness of breath. COMPARISON: 08/11/2020. FINDINGS: A frontal view of the chest is obtained. Linear opacities in the bases most likely indicate atelectasis or scarring and are not clearly change d. A moderate hiatal hernia is suspected. There is no pneumothorax or pleural effusion. The heart is not enlarged. Aortic and carotid atherosclerotic calcifications are noted. A small sclerotic focus within the left proximal humeral metaphysis measures 7 mm and was not seen pr eviously. IMPRESSION: 1. Bibasilar atelectasis or scarring. 2. New 7 mm sclerotic focus within the left proximal humerus. This may be an artifact. Shoulder or hu meral radiographs without overlying objects could further evaluate. 3. Moderate hiatal hernia. Electronically signed by: Robinson Justin MD (09/18/2020 11:57 AM) [id number]
[2020-09-18 12:08] VITALS: BP 138/69
[2020-09-18 12:11] LABS: HEMOGLOBIN ISTAT 11.6 gm/dL; POTASSIUM ISTAT 3.4 mmol/L (3.5-5.0)
--- NOTE | 2020-09-18 12:22 | PHYS DOC ---
Past History Past Medical History: COPD, High Cholesterol, Other Additional Past Medical Histor: kidney stones, (ADRIAN DAVILA APRN) Past Surgical History: Hip Replacement, Other Additional Past Surgical Histo: BACK, KIDNEY STONE (ADRIAN DAVILA APRN) Alcohol Use: None Drug Use: None (ADRIAN DAVILA APRN) Adult General Chief Complaint Chief Complaint: SHORTNESS OF BREATH HPI HPI Patient is a 79-year-old female who presented to the emergency department via EMS expert medical writer transport with a chief complaint of low O2 saturation. Patient states she was taking her new Can medication inhaler when she choked on it at 730 this morning. Patient states it made her anxious and she felt as if she was short of breath, took her O2 sat and it was 85% on her home O2 sat machine, used her inhaler x1 puff and called her nurse practitioner daughter who lives out of town who told her to call 911 and come straight to the emergency department. Patient reports the expert medical writer read a 70% O2 sat when he arrived and started a DuoNeb treatment immediately. Patient states it helped greatly but she still feels some shortness of breath. Patient states she cares for herself at home. Patient denies any cough, chest pain, abdominal pain, nausea, vomiting, diarrhea, syncopal episodes, vision changes, dizziness or urinary changes. Patient states she does have urinary retention problems in which he takes medications for but sometimes needs help with catheterization.. Patient denies any numbness or tingling to her extremities. Patient denies any other aches or pains of her body. Patient states she has a history of a pulmonary embolus in which she takes Eliquis for. Patient states she has a history of COPD but has never smoked a cigarette. Patient denies alcohol consumption or illicit drug use. (ADRIAN DAVILA APRN) Review of Systems Review of Systems 14 body systems of review of systems have been reviewed. See HPI for pertinent positives and negative responses, otherwise all other systems are negative, nonpertinent or noncontributory. (ADRIAN DAVILA APRN) Allergies Allergies Allergies Coded Allergies Type Severity Reaction Last Updated Verified No Known Drug Allergies 08/11/20 No (ADRIAN DAVILA APRN) Physical Exam Physical Exam Constitutional: Well developed, well nourished, no acute distress, non-toxic appearance. 79-year-old female appears anxious, is in no respiratory distress. 100% on room air O2 sat, the patient is not febrile, pulse is 77, blood pressure 140/73 during exam. HENT: Normocephalic, atraumatic, bilateral external ears normal, oropharynx moist, no oral exudates, nose normal. Oropharynx moist, pink, no infectious process appreciated, no swelling or edema, no postnasal drip appreciated, no trismus, no drooling. Patient speaking in normal voice tones. Eyes: PERRLA, EOMI, conjunctiva normal, no discharge. Neck: Normal range of motion, no tenderness, supple, no stridor. Cardiovascular:Heart rate regular rhythm, no murmur, heart sounds S1-S2 to a uscultation. Lungs & Thorax: Bilateral breath sounds clear to auscultation all lung rodriguez, no adventitious lung sounds appreciated. Abdomen: Bowel sounds normal, soft, no tenderness, no masses, no pulsatile samira s. Skin: Warm, dry, no erythema, no rash. Back: No tenderness, no CVA tenderness. Extremities: No tenderness, no cyanosis, no clubbing, ROM intact, no edema. Neurologic: Alert and oriented X 3, normal motor function, normal sensory function, no focal deficits noted. Psychologic: Affect normal, judgement normal, mood normal. (ADRIAN DAVILA APRN) Current Patient Data Vital Signs Vital Signs Date Time Temp Pulse Resp B/P (MAP) Pulse Ox O2 Delivery O2 Flow Rate FiO2 09/18/20 11:08 97.6 81 22 141/71 (94) 100 Lab Results Laboratory Tests Test 09/18/20 11:11 White Blood Count 5.2 x10^3/uL (4.0-11.0) Red Blood Count 3.21 x10^6/uL (3.50-5.40) L Hemoglobin 11.3 g/dL (12.0-15.5) L POC Hemoglobin 11.6 gm/dL Hematocrit 33.1 % (36.0-47.0) L POC Hematocrit 34 % Mean Corpuscular Volume 103 fL (79-100) H Mean Corpuscular Hemoglobin 35 pg (25-35) Mean Corpuscular Hemoglobin Concent 34 g/dL (31-37) Red Cell Distribution Width 13.8 % (11.5-14.5) Platelet Count 176 x10^3/uL (140-400) Neutrophils (%) (Auto) 45 % (31-73) Lymphocytes (%) (Auto) 46 % (24-48) Monocytes (%) (Auto) 8 % (0-9) Eosinophils (%) (Auto) 1 % (0-3) Basophils (%) (Auto) 1 % (0-3) Neutrophils # (Auto) 2.3 x10^3uL (1.8-7.7) Lymphocytes # (Auto) 2.4 x10^3/uL (1.0-4.8) Monocytes # (Auto) 0.4 x10^3/uL (0.0-1.1) Eosinophils # (Auto) 0.0 x10^3/uL (0.0-0.7) Basophils # (Auto) 0.0 x10^3/uL (0.0-0.2) POC Sodium 138 mmol/L (135-145) POC Potassium 3.4 mmol/L (3.5-5.0) L POC Chloride 101 mmol/L (98-110) POC Total CO2 25 mmol/L (23-32) Anion Gap 16 mmol/L (6-14) H POC Blood Urea Nitrogen 25 mg/dL (8-26) POC Creatinine 1.2 mg/dL (0.5-1.4) Glucose Level 85 mg/dL (60-99) POC Ionized Calcium (Christelle) 1.22 mmol/L (1.13-1.32) POC Troponin I 0.01 ng/ml (<0.08) (ADRIAN DVAILA APRN) EKG EKG EKG performed at 1123 by house respiratory therapy staff shows a normal sinus rhythm with left axis deviation without other ectopy, heart rate 76 bpm, [place] interval 0.166, QTc interval 0.455, no acute STEMI, no ACS, no acute ischemia appreciated, EKG interpreted by ED attending physician Dr. Mueller. (ADRIAN DAVILA APRN) Radiology/Procedures Radiology/Procedures PATIENT: NAIMA HUFFMAN PACCOUNT: [id number] : 1940 LOCATION: ER AGE: 79 SEX: F EXAM STATUS: REG ER ORD. PHYSICIAN: DELORIS MUELLER DO REASON: SHORTNESS OF BREATH PROCEDURE: CHEST AP ONLY EXAM: CHEST ONE VIEW. HISTORY: Shortness of breath. COMPARISON: 08/11/2020. FINDINGS: A frontal view of the chest is obtained. Linear opacities in the bases most likely indicate atelectasis or scarring and are not clearly changed. A moderate hiatal hernia is suspected. There is no pneumothorax or pleural effusion. The heart is not enlarged. Aortic and carotid atherosclerotic calcifications are noted. A small sclerotic focus within the left proximal humeral metaphysis measures 7 mm and was not seen previously. IMPRESSION: 1. Bibasilar atelectasis or scarring. 2. New 7 mm sclerotic focus within the left proximal humerus. This may be an artifact. Shoulder or humeral radiographs without overlying objects could further evaluate. 3. Moderate hiatal hernia. Electronically signed by: Robinson Justin MD (09/18/2020 11:57 AM) [id number] DICTATED AND SIGNED BY: MILA JUSTIN MD DATE: 09/18/20 1155 CC: ADRIAN DAVILA APRN; DELORIS MUELLER DO; GIBSON LANDA MD ~MTH0 0 (ADRIAN DAVILA APRN) Heart Score C/O Chest Pain: No Risk Factors: Risk Factors: DM, Current or recent (<one month) smoker, HTN, HLP, family history of CAD, obesity. Risk Scores: Risk Factors: DM, Current or recent (<one month) smoker, HTN, HLP, family history of CAD, obesity. (ADRIAN DAVILA APRN) Course & Med Decision Making Course & Med Decision Making Pertinent Labs and Imaging studies reviewed. (See chart for details) 79-year-old female, vital signs reviewed, presents emergency department concerning low O2 sat at home. Patient's physical examination was unremarkable, however related to patient's continuing feeling of shortness of breath will order a additional DuoNeb treatment. Patient is currently 100% O2 sat on room air. Patient is also complaining of urinary retention, states her bladder feels full, will order straight cath as needed for comfort. Will order CBC, proBNP, CMP. Upon reevaluation of the patient, patient states the nurse did straight catheter, and afterwards she was able to get up and use the restroom to completely empty her bladder and feels much better. Patient continues to be anxious in appearance, will order 0.5 mg Ativan p.o. The patient's chest x-ray read bilateral basilar atelectasis per house radiologist of rotation, wet read by ED attending physician Dr. Mueller did not show any concerning findings. Upon reevaluation the patient, patient is nontoxic in appearance, is in no obvious distress, states she feels much better and is ready to go home. Patient states she believes this was all from anxiety as she states the Ativan tablet helped her tremendously. Discussed with patient discharged home and continue home meds, will not start any steroid treatment as she did not have any adventitious breath sounds, is no short of breath, 100% O2 sat, and reason for ER presentation most likely exacerbated from anxiety from choking on medication this morning. Did consider pulmonary emboli and patient, however the patient is not tachypneic nor tachycardic, the patient is already anticoagulated with Eliquis, the patient's O2 sat is 100%. The patient is having no chest pain. Discussed with patient strict return to emergency department precautions or conc erns, and strict follow-up with primary care physician tomorrow. Discussed with patient abnormal finding on chest x-ray of left humerus, patient will follow up with primary care for further evaluation. Patient gave verbal understanding of discharge home instructions, follow-up with primary care tomorrow, return to ER precautions or concerns, continue home meds, patient was discharged home without incident. (ADRIAN DAVILA APRN) Dragon Disclaimer Dragon Disclaimer This electronic medical record was generated, in whole or in part, using a voice recognition dictation system. (ADRIAN ADVILA APRN) Attending Co-Sign The patient was seen and interviewed as well as examined at the bedside. The chart was reviewed. The case was discussed. Agree with the plan of care. (DELORIS MUELLER DO) Departure Departure: Impression: Primary Impression: Low O2 saturation Additional Impressions: Shortness of breath Anxiety about health History of urinary retention Abnormal chest x-ray Disposition: HOME / SELF CARE / HOMELESS Condition: GOOD Referrals: GIBSNO LANDA MD (PCP) Additional Instructions: You are seen today in the emergency department for a low O2 saturation with shortness of breath at home, you were treated with DuoNeb breathing treatment in the ER, you are also given 1/2 mg of Ativan for anxiety, your chest x-ray did not show any concerning findings of your lungs, your lab work did not show any concerning findings, however your chest x-ray did show an abnormal finding of the bone of your left upper arm near your shoulder, please follow-up with your primary care physician for further evaluation of this. Please continue all your home medications as directed by your primary care doctors, please return to the emergency department for worsening symptoms or other concerns. EMERGENCY DEPARTMENT GENERAL DISCHARGE INSTRUCTIONS Thank you for coming to [facility] (ED) today and trusting us with you care. We trust that you had a positivie experience in our Emergency Department. If you wish to speak to the department management, you may call the director at [phone]. YOUR FOLLOW UP INSTRUCTIONS ARE FOLLOWS: 1. Do you have a private Doctor? If you do not have a private doctor, please ask for a resource list of physicians or clinics that may be able to assist you with follow up care. 2. The Emergency Physician has interpreted your x-rays. The X-Ray specialist will also review them. If there is a change in the findings, you will be notified in 48 hours when at all possible. 3. A lab test or culture has been done, your results will be reviewed and you will be notified if you need a change in treatment. ADDITIONAL INSTRUCTIONS AND INFORMATION: 1. Your care today has been supervised by a physician who is specially trained in emergency care. Many problems require more than one evaluation for a complete diagnosis and treatment. We recommend that you schedule your follow up appointment as recommended to ensure complete treatment of you illness or injury. If you are unable to obtain follow up care and continue to have a problem, or if your condition worsens, we recommend that you return to the ED. 2. We are not able to safely determine your condition over the phone nor are we able to give sound medical advice over the phone. For these safety reasons, if you call for medical advice we will ask you to come to the ED for further evaluation. 3. If you have any questions regarding these discharge instructions please call the ED at [phone]. SAFETY INFORMATION: In the interest of safety, wellness, and injury prevention; we encourage you to wear your sealbelt, if you smoke; quite smoking, and we encourage family to use a protective helmet for bicycling and other sporting events that present an increased risk for head injury. IF YOUR SYMPTOMS WORSEN OR NEW SYMPTOMS DEVELOP, OR YOU HAVE CONCERNS ABOUT YOUR CONDITION; OR IF YOUR CONDITION WORSENS WHILE YOU ARE WAITING FOR YOUR FOLLOW UP APPOINTMENT; EITHER CONTACT YOUR PRIMARY CARE DOCTOR, THE PHYSICIAN WHOSE NAME AND NUMBER YOU WERE GIVEN, OR RETURN TO THE ED IMMEDIATELY. Problem Qualifiers ADRIAN DAVILA APRN Sep 18, 2020 12:22 DELORIS MUELLER DO Sep 21, 2020 03:51
[2020-09-18] MEDS ORDERED: methylPREDNISolone SOD SUCC PF 125 MG/2 ML VIAL. IV ONE (12:45)
[2020-09-18] MEDS ORDERED: IPRATRPIUM/ALBUTEROL 0.5/2.5MG 3 ML NEBU. NEB ONE (12:45)
[2020-09-18] MEDS ORDERED: LORazepam 1 MG TABLET PO ONE (13:15)
[2020-09-18 15:51] LABS: CALCIUM 9.2 mg/dL (8.5-10.1); CREATININE 1.3 mg/dL (0.6-1.0); GFR 39.4; POTASSIUM 3.6 mmol/L (3.5-5.1)
[2020-09-18 16:06] LABS: ALBUMIN 3.4 g/dL (3.4-5.0); ALBUMIN/GLOBULIN RATIO 1.2 (1.0-1.7); TOTAL BILIRUBIN 0.7 mg/dL (0.2-1.0); TOTAL PROTEIN 6.2 g/dL (6.4-8.2)
== END 2020-09-18 14:55 | disposition home or self-care (01) ==
LOC: ER 11:05
DX: F41.9 Anxiety disorder, unspecified (principal); R33.9 Retention of urine, unspecified; J44.9 Chronic obstructive pulmonary disease, unspecified; E78.5 Hyperlipidemia, unspecified; Z87.442 Personal history of urinary calculi
CPT/HCPCS: 36415; 71045; 80047; 80053; 83880; 84484; 85025; 93005; 94640; 96374; 99285; J2930

== ENCOUNTER → 2020-10-17 | Outpatient (CLI) | payer MEDICARE, BC ==
[2020-09-18 12:08] VITALS: BP 138/69
--- NOTE | 2020-10-18 09:34 | RAD ---
XR HUMERUS_LT 2 VIEWS History: Reason: ABNORMAL SPOT SEEN ON HUMERUS / Spl. Instructions: / History: Technique: 2 views left humerus Comparison: None. Findings: Normal alignment. No fracture. Impression: 1. No acute osseous abnormality. Electronically signed by: Ernst Kruse DO (10/18/2020 9:31 AM) [id number]
== END ==
LOC: RAD 13:22
PROVIDERS: ATTEND Family Medicine
DX: R93.89 Abnormal findings on diagnostic imaging of other specified body structures (principal)
CPT/HCPCS: 73060